=== PATIENT | female | born 1960 | race Caucasian/White ===

== ENCOUNTER 2018-11-25 14:52 | Emergency (ER) | payer OTHER ==
[2018-11-25] MEDS ORDERED: ONDANSETRON 4 MG (ODT) TAB ONE (15:26)
[2018-11-25] MEDS ORDERED: HYDROCODONE/APAP 7.5/325 MG TAB ONE (15:26)
--- NOTE | 2018-11-25 15:53 | RAD REPORT ---
EXAM DESCRIPTION: CT - Head Brain Wo Cont - 11/25/2018 3:40 pm CLINICAL HISTORY: Head injury status post fall. Headache e COMPARISON: None. TECHNIQUE: Computed axial tomography of the head was obtained. IV contrast was not requested. All CT scans are performed using dose optimization technique as appropriate and may include automated exposure control or mA/KV adjustment according to patient size. FINDINGS: An intracranial bleed is not seen . The ventricles are normal in caliber. No extra-axial fluid collection is noted. Fluid within the sinuses/ mastoids is not seen. IMPRESSION: No acute intracranial abnormality is seen. If patient's symptoms persist MRI of the bra in would be recommended.
--- NOTE | 2018-11-25 16:12 | RAD REPORT ---
EXAM DESCRIPTION: RAD - Humerus Right - 11/25/2018 4:06 pm CLINICAL HISTORY: Right arm pain status post fall FINDINGS: Comminuted fracture involves the humeral head/neck with moderate displacement of fracture fragments. No dislocation noted
--- NOTE | 2018-11-25 16:17 | RAD REPORT ---
EXAM DESCRIPTION: RAD - Wrist Right 3 View - 11/25/2018 4:06 pm CLINICAL HISTORY: Right wrist pain status post injury FINDINGS: Osteoporosis An old right distal radial fracture is present. An acute fracture line is not visualized. No dislocation If the patient continues to have symptoms to suggest an occult fracture then a follow-up x-ray in 5 d ays would be recommended
--- NOTE | 2018-11-25 16:24 | ER ---
Nurse's Notes [facility] Name: Samra Judge Age: 58 yrs Sex: Female : 1960 Arrival Date: 11/25/2018 Time: 14:53 Bed 16 Private MD: Diagnosis: Mildly Displaced Comminuted Humeral Head Fracture of the Right Humerus Presentation: 11/25 14:55 Presenting complaint: Patient states: "I fell at work, my upper arm hurts and I heard aj1 something funny. As I was going down I hit the right side of my face of the refrigerator. My wrist I broke years ago but it is hurting now" Denies LOC, vomiting. Patient reports that she was backing up and she didn't realize that there was a kid behind her and she tripped over the kid and landed on her knees and then the right side. Patient reports pain to right upper arm, and right wrist. Transition of care: patient was not received from another setting of care. Onset of symptoms was November 25, 2018 at 13:55. Risk Assessment: Do you want to hurt yourself or someone else? Patient reports no desire to harm self or others. Initial Sepsis Screen: Does the patient meet any 2 criteria? No. Patient's initial sepsis screen is negative. Does the patient have a suspected source of infection? No. Patient's initial sepsis screen is negative. Care prior to arrival: None. 14:55 Method Of Arrival: Wheelchair aj1 14:55 Acuity: LULU 3 aj1 Triage Assessment: 14:59 General: Appears uncomfortable, Behavior is calm, cooperative, appropriate for age. aj1 Pain: Complains of pain in right bicep, right wrist and right tricep Pain currently is 10 out of 10 on a pain scale. Neuro: Level of Consciousness is awake, alert, obeys commands. Cardiovascular: Patient's skin is warm and dry. Respiratory: Airway is patent Respiratory effort is even, unlabored, Respiratory pattern is regular, symmetrical. Historical: - Allergies: 14:59 Sulfa (Sulfonamide Antibiotics); aj1 - Home Meds: 14:59 Cinnamon oral oral [Active]; tumeric [Active]; Glucosamine oral oral [Active]; CoQ10 aj1 [Active]; cranberry oral oral [Active]; - PMHx: 14:59 None; aj1 - PSHx: 14:59 wrist surgery; aj1 - Immunization history:: Flu vaccine is not up to date. - Social history:: Smoking status: Patient/guardian denies using tobacco. - Ebola Screening: : Patient denies travel to an Ebola-affected area in the 21 days before illness onset. Screenin:05 Abuse screen: Denies threats or abuse. Nutritional screening: No deficits noted. rb1 Tuberculosis screening: No symptoms or risk factors identified. Fall Risk None identified. Assessment: 15:05 General: Appears uncomfortable, Behavior is calm, cooperative. Pain: Complains of pain rb1 in right arm Pain currently is 10 out of 10 on a pain scale. Neuro: Level of Consciousness is awake, alert, obeys commands, Oriented to person, place, time, situation. Cardiovascular: Capillary refill < 3 seconds is brisk in bilateral fingers. Respiratory: Airway is patent Respiratory effort is even, unlabored, Respiratory pattern is regular, symmetrical. GI: No signs and/or symptoms were reported involving the gastrointestinal system. : No signs and/or symptoms were reported regarding the genitourinary system. Derm: Skin is pink, warm \\T\\ dry. Musculoskeletal: Range of motion: limited in right arm. 16:00 Reassessment: Patient appears in no apparent distress at this time. No changes from rb1 previously documented assessment. 17:00 Reassessment: Patient appears in no apparent distress at this time. Patient and/or rb1 family updated on plan of care and expected duration. Pain level reassessed. Patient is alert, oriented x 3, equal unlabored respirations, skin warm/dry/pink. Vital Signs: 14:59 BP 170 / 79; Pulse 51; Resp 20; Temp 98.1(TE); Pulse Ox 100% on R/A; Weight 85.73 kg aj (R); Height 5 ft. 4 in. (162.56 cm) (R); Pain 10/10; 16:00 BP 190 / 63; Pulse 63; Resp 17; Pulse Ox 99% on R/A; rb1 17:00 BP 171 / 74; Pulse 60; Resp 16; Pulse Ox 100% on R/A; Pain 8/10; rb1 14:59 Body Mass Index 32.44 (85.73 kg, 162.56 cm) [facility] ED Course: 14:53 Patient arrived in ED. aj1 14:58 Triage completed. aj1 14:59 Arm band placed on Patient placed in an exam room. aj1 15:05 Patient has correct armband on for positive identification. Bed in low position. Call rb1 light in reach. Side rails up X 1. Pulse ox on. NIBP on. 15:06 Mike Chapa PA is PHCP. jr8 15:06 Kyle Oleary MD is Attending Physician. jr8 15:18 Shonda Watson, RN is Primary Nurse. rb1 15:40 Head Brain Wo Cont CT In Process Unspecified. EDMS 16:05 Humerus Right XRAY In Process Unspecified. EDMS 16:06 Wrist Right 3 View XRAY In Process Unspecified. EDMS 16:22 Kevyn Mcfarland MD is Referral Physician. jr8 17:03 No provider procedures requiring assistance completed. Patient did not have IV access rb1 during this emergency room visit. Administered Medications: 15:28 Drug: Zofran 4 mg Route: PO; rb1 16:00 Follow up: Response: No adverse reaction rb1 15:28 Drug: [place] (7.5 mg-325 mg) 1 tabs Route: PO; rb1 16:00 Follow up: Response: No adverse reaction; Pain is decreased rb1 Outcome: 16:24 Discharge ordered by MD. jr8 17:03 Patient left the ED. rb1 17:03 Discharged to home via wheelchair, with family. rb1 17:03 Condition: stable 17:03 Discharge instructions given to patient, Instructed on discharge instructions, follow up and referral plans. medication usage, Demonstrated understanding of instructions, follow-up care, medications, Prescriptions given X 3. Signatures: Dispatcher [employer] EDMarie Peace RN RN aj1 Mike Chapa PA PA jr8 Shonda Watson, RN RN rb1
--- NOTE | 2018-11-25 16:25 | EDPHYS ---
Physician Documentation [facility] Name: Samra Judge Age: 58 yrs Sex: Female : 1960 Arrival Date: 11/25/2018 Time: 14:53 Bed 16 Private MD: ED Physician Kyle Oleary HPI: 11/25 15:16 This 58 yrs old Female presents to ER via Wheelchair with complaints of Fall jr8 Injury, Shoulder Injury. 15:16 Details of fall: The patient fell from an upright position, while walking. Onset: The jr8 symptoms/episode began/occurred just prior to arrival. Severity of symptoms: At their worst the symptoms were mild. Pt was at work and stepping backwards when she stumbled and fell forwards, C/O pain in right upper arm, right wrist, and head. Denies LOC, dizziness, vomiting. Historical: - Allergies: 14:59 Sulfa (Sulfonamide Antibiotics); aj1 - Home Meds: 14:59 Cinnamon oral oral [Active]; tumeric [Active]; Glucosamine oral oral [Active]; CoQ10 aj1 [Active]; cranberry oral oral [Active]; - PMHx: 14:59 None; aj1 - PSHx: 14:59 wrist surgery; aj1 - Immunization history:: Flu vaccine is not up to date. - Social history:: Smoking status: Patient/guardian denies using tobacco. - Ebola Screening: : Patient denies travel to an Ebola-affected area in the 21 days before illness onset. ROS: 15:18 Constitutional: Negative for fever, chills, and weight loss, Eyes: Negative for injury, jr8 pain, redness, and discharge, ENT: Negative for injury, pain, and discharge, Neck: Negative for injury, pain, and swelling, Cardiovascular: Negative for chest pain, palpitations, and edema, Respiratory: Negative for shortness of breath, cough, wheezing, and pleuritic chest pain, Abdomen/GI: Negative for abdominal pain, nausea, vomiting, diarrhea, and constipation, Back: Negative for injury and pain, Skin: Negative for injury, rash, and discoloration. 15:18 MS/extremity: Positive for pain, of the face and right arm and right wrist. Exam: 15:18 Constitutional: This is a well developed, well nourished patient who is awake, alert, jr8 and in no acute distress. Head/Face: Normocephalic, atraumatic. Eyes: Pupils equal round and reactive to light, extra-ocular motions intact. Lids and lashes normal. Conjunctiva and sclera are non-icteric and not injected. Cornea within normal limits. Periorbital areas with no swelling, redness, or edema. ENT: Nares patent. No nasal discharge, no septal abnormalities noted. Tympanic membranes are normal and external auditory canals are clear. Oropharynx with no redness, swelling, or masses, exudates, or evidence of obstruction, uvula midline. Mucous membranes moist. Neck: Trachea midline, no thyromegaly or masses palpated, and no cervical lymphadenopathy. Supple, full range of motion without nuchal rigidity, or vertebral point tenderness. No Meningismus. Chest/axilla: Normal chest wall appearance and motion. Nontender with no deformity. No lesions are appreciated. Cardiovascular: Regular rate and rhythm with a normal S1 and S2. No gallops, murmurs, or rubs. Normal PMI, no JVD. No pulse deficits. Respiratory: Lungs have equal breath sounds bilaterally, clear to auscultation and percussion. No rales, rhonchi or wheezes noted. No increased work of breathing, no retractions or nasal flaring. Abdomen/GI: Soft, non-tender, with normal bowel sounds. No distension or tympany. No guarding or rebound. No evidence of tenderness throughout. Back: No spinal tenderness. No costovertebral tenderness. Full range of motion. 15:18 Musculoskeletal/extremity: ROM: intact in all extremities, Circulation is intact in all extremities. Sensation intact. Vital Signs: 14:59 BP 170 / 79; Pulse 51; Resp 20; Temp 98.1(TE); Pulse Ox 100% on R/A; Weight 85.73 kg aj1 (R); Height 5 ft. 4 in. (162.56 cm) (R); Pain 10/10; 16:00 BP 190 / 63; Pulse 63; Resp 17; Pulse Ox 99% on R/A; rb1 17:00 BP 171 / 74; Pulse 60; Resp 16; Pulse Ox 100% on R/A; Pain 8/10; rb1 14:59 Body Mass Index 32.44 (85.73 kg, 162.56 cm) aj1 MDM: 15:06 Patient medically screened. jr8 16:21 Data reviewed: vital signs, nurses notes, radiologic studies, plain films, and as a jr8 result, I will discharge patient. Data interpreted: Pulse oximetry: on room air is 100 %. Interpretation: normal. Counseling: I had a detailed discussion with the patient and/or guardian regarding: the historical points, exam findings, and any diagnostic results supporting the discharge/admit diagnosis, radiology results. 11/25 15:14 Order name: Humerus Right XRAY; Complete Time: 16:21 jr8 11/25 15:14 Order name: Wrist Right 3 View XRAY; Complete Time: 16:21 jr8 11/25 15:14 Order name: Head Brain Wo Cont CT; Complete Time: 16:21 jr8 11/25 16:21 Order name: Sling; Complete Time: 17:02 jr8 Administered Medications: 15:28 Drug: Zofran 4 mg Route: PO; rb1 16:00 Follow up: Response: No adverse reaction rb1 15:28 Drug: Fisher (7.5 mg-325 mg) 1 tabs Route: PO; rb1 16:00 Follow up: Response: No adverse reaction; Pain is decreased rb1 Disposition: 18:15 Co-signature as Attending Physician, Kyle Oleary MD. rn Disposition: 11/25/18 16:24 Discharged to Home. Impression: Mildly Displaced Comminuted Humeral Head Fracture of the Right Humerus. - Condition is Stable. - Discharge Instructions: Humerus Fracture Treated With Immobilization, Musculoskeletal Pain. - Prescriptions for Ibuprofen 800 mg Oral Tablet - take 1 tablet by ORAL route every 12 hours As needed take with food; 20 tablet. Tylenol- Codeine #3 300-30 mg Oral Tablet - take 2 tablets by ORAL route every 8 hours As needed; 20 tablet. Zofran ODT 4 mg Oral tablet,disintegrating - take 1 tablet by ORAL route every 6-8 hours; 20 tablet. - Work release form, Medication Reconciliation Form, Thank You Letter form. - Follow up: Kevyn Mcfarland MD; When: 2 - 3 days; Reason: Recheck today's complaints, Re-evaluation by your physician. - Problem is new. - Symptoms have improved. Signatures: Dispatcher [employer] EDMarie Peace RN RN aj1 Kyle Oleary MD MD rn Roszak, Josh, PA PA jr8 Shonda Watson RN RN rb1 Corrections: (The following items were deleted from the chart) 17:03 16:24 11/25/2018 16:24 Discharged to Home. Impression: Mildly Displaced Comminuted rb1 Humeral Head Fracture of the Right Humerus. Condition is Stable. Forms are Medication Reconciliation Form, Thank You Letter, Antibiotic Education, Prescription Opioid Use. Follow up: Kevyn Mcfarland; When: 2 - 3 days; Reason: Recheck today's complaints, Re-evaluation by your physician. Problem is new. Symptoms have improved. jr8
[2018-11-25 17:07] VITALS: BP 170/79; TEMP 98.1; O2SAT 100
== END 2018-11-25 17:03 | disposition home or self-care (01) ==
LOC: ER 14:52
DX: S42.351A Displaced comminuted fracture of shaft of humerus, right arm, initial encounter for closed fracture (principal); W19.XXXA Unspecified fall, initial encounter; Y93.01 Activity, walking, marching and hiking; Y92.89 Other specified places as the place of occurrence of the external cause; Y99.8 Other external cause status; Z88.2 Allergy status to sulfonamides
CPT/HCPCS: 70450; 99284

== ENCOUNTER 2019-08-13 08:25 | Day surgery (SDC) | payer OTHER ==
--- NOTE | 2019-08-11 18:10 | RAD REPORT ---
EXAM DESCRIPTION: RAD - Chest Pa And Lat (2 Views) - 08/11/2019 6:04 pm CLINICAL HISTORY: preop Chest pain. COMPARISON: CHEST SINGLE VIEW dated 12/09/2012 FINDINGS: Moderate bilateral pleural effusions are present. Mild interstitial pulmonary edema. The h eart is moderately enlarged in size. Old fractures seen proximal right humerus. IMPRESSION: Moderate CHF.
[2019-08-11 18:21] LABS: Absolute Lymphocytes (CBC) 2.4 K/uL (0.7-4.9); Basophils % 0.8 % (0-1.3); Hematocrit 40.5 % (36.0-45.0); Lymphocytes % 35.7 % (15.3-44.8); MPV 6.5 fL (7.6-11.3); RBC Red Blood Cell Count 4.96 M/uL (3.86-4.86)
[2019-08-11 18:34] LABS: Potassium 3.9 mmol/L (3.5-5.1); Protime INR 0.82
--- NOTE | 2019-08-12 06:26 | EKG ---
Test Date: 2019-08-11 Test Time: 17:34:25 Pressure Controller: DIPTI MEASUREMENT RESULTS: Intervals: Rate: 53 [place]: 186 QRSD: 112 QT: 474 QTc: 444 [place]: P: 29 [place]: 186 QRS: -19 T: 69 INTERPRETIVE STATEMENTS: Sinus bradycardia with sinus arrhythmia Minimal voltage criteria for LVH, may be normal variant Nonspecific T wave abnormality Abnormal ECG No previous ECG available for comparison Electronically Signed On 08-12-19 06:24:22 CDT by Robert Andino
[2019-08-13] MEDS ORDERED: NA CHLORIDE 0.9% 500 ML ONE (08:38)
[2019-08-13] MEDS ORDERED: ATROPINE SULF 1 MG/10 ML SYR IV ONE (09:55)
[2019-08-13] MEDS ORDERED: FENTANYL CITR 100 MCG/2 ML ONE (09:55)
[2019-08-13] MEDS ORDERED: MIDAZOLAM HCL 2 MG/2 ML INJ ONE (09:55)
[2019-08-13] MEDS ORDERED: NA CHLORIDE 0.9% 0 ML ONE (09:55)
--- OUTSIDE RECORDS SUMMARY | 2019-08-13 10:21 | XMS REPORT | Continuity of Care Document ---
:1960 Author Organization [facility] t Address [facility] Vic Macdonald [address] [place] [id number] Care Team Providers Name Role Phone MAHARAJ Attending Clinician Unavailable Problems Condition Condition Condition Status Onset Resolution Last Treating Co mments Source Name Details Category Date Date Treatment Clinician Date History of History of Problem Resolve Univers Fracture Fracture d ity of of right of right [place] humerus humerus Physici ans Closed Closed Problem Active Univers fracture fracture ity of of of [place] proximal proximal Physic i end of end of ans right right humerus, humerus, initial initial encounter encounter Right Right Problem Active Univers shoulder shoulder ity of pain pain [place] Physici ans Essential Essential Problem Active Uni vers (primary) (primary) ity of hypertensi hypertensi [place] on on Physici ans Hypothyroi Hypothyroi Problem Active U nivers dism dism ity of [place] Physici ans Nausea Nausea Problem Active Univers ity of [place] Physici ans Allergies, Adverse Reactions, Alerts Allergy Allergy Status Severity Reaction(s) Onset Inactive Treating Comm ents Source Name Type Date Date Clinician ondanset Allergy Active Univers kamari to drug ity of (finding [place] ) Physici ans Sulfa Allergy Active Univers Drugs to drug ity of (finding [place] ) Physici ans Social History Smoking Status Start Date Stop Date Source Never smoked tobacco (finding) U [facility] Physicians Medications Ordered Filled Start Stop Current Ordering Indication Dosage Frequency Signature Comments Components Source Medication Medication Date Date Medication? Clinician (SIG) Name Name Acetaminoph Acetaminoph 2018-02 Yes ABY TAKE 1-2 Univers en-Codeine en-Codeine 0-17 MAHARAJ M.D. TABLETS ity of 300-30 MG 300-30 MG 00:00: EVERY 6 TO [place] Oral Tablet Oral Tablet 00 8 HOURS Physici NEEDED FOR ans PAIN. Ibuprofen Ibuprofen Yes M.A. Unive rs 800 MG Oral 800 MG Oral i ty of Tablet Tablet [place] Physici ans Metoprolol Metoprolol Yes M.A. Uni vers Succinate Succinate ity o f ER 50 MG ER 50 MG [place] Oral Tablet Oral Tablet P hysici Extended Extended ans Release 24 Release 24 Hour Hour Spironolact Spironolact Yes M.A. U nivers one 50 MG one 50 MG ity o f Oral Tablet Oral Tablet [place] Physici ans Promethazin Promethazin Yes M.A. U nivers e HCl - 25 e HCl - 25 ity of MG Oral MG Oral [place] Tablet Tablet Physici ans Synthroid Synthroid Yes M.A. Unive rs 75 MCG Oral 75 MCG Oral i ty of Tablet Tablet [place] Physici ans Cinnamon Cinnamon Yes M.A. Univers TABS TABS ity of [place] Physici ans Turmeric Turmeric Yes M.A. Univers TABS TABS ity of [facility] ans Glucosamine Glucosamine Yes M.A. U nivers -Chondroiti -Chondroiti i ty of n CAPS n CAPS [facility] ans Multi Multi Yes M.A. Univers Vitamin Vitamin ity of TABS TABS [facility] ans CoQ-10 CAPS CoQ-10 CAPS Yes M.A. U nivers ity of [facility] ans Vitamin D Vitamin D Yes M.A. Unive rs TABS TABS ity of [facility] ans Cranberry Cranberry Yes M.A. Unive rs CAPS CAPS ity of [facility] ans Vital Signs Vital Name Observation Time Observation Value Comments Source BP Systolic 2018-12-11 09:50:00 167 mm[Hg] [facility]icians BP Diastolic 2018-12-11 09:50:00 84 mm[Hg] [facility] Height 2018-12-11 09:50:00 65 [in_us] [facility] Weight 2018-12-11 09:50:00 198 [lb_av] [facility] Body Mass Index 2018-12-11 09:50:00 32.95 kg/m2 [facility] Calculated Physicians Heart Rate 2018-12-11 09:50:00 63 /min [facility] Phys[facility] Procedures Procedure Date / Time Performed Performing Clinician Sourc e History of Wrist [facility] [place] [facility] ex Surgery Physicians Encounters Start End Encounter Admission Attending Care Care Encounter Source Date/Time Date/Time Type Type Clinicians Facility Department ID 2019-02-09 2019-02-09 Appointmen DYLAN MAHARAJ Orthopedics [id number] [facility] 09:45:00 09:45:00 t; ABY MAHARAJ, - [place] [facility] [place] [facility] Physici ans 2019-01-07 2019-01-07 Appointmen DYLAN MAHARAJ Orthopedics [id number] [facility] 13:45:00 13:45:00 t; ABY MAHARAJ, - [place] [facility] [place] 1 [facility] Physici ans 2018-12-25 2018-12-25 Appointmen DYLAN MAHARAJ Orthopedics [id number] [facility] 08:30:00 08:30:00 t; ABY MAHARAJ, - [place] [facility] [place] 1 [facility] Physici ans 2018-12-11 2018-12-11 Appointmen [facility] Orthopedics [id number] [facility] 09:30:00 09:30:00 t; ABY MAHARAJ, - [place] [facility] [place] 1 [facility] Physici ans Results This patient has no known results.
[2019-08-13 13:26] VITALS: BP 169/63; TEMP 98; O2SAT 94
--- NOTE | 2019-08-13 21:28 | OP ---
Date of Procedure: 08/13/2019 Surgeon: Robert Andino MD Pretzel Packer: Enedelia Enriquez. Patient will remain at bedrest for 2 hours and go home and see me in the office in the next 2 weeks. Procedure: Left heart catheterization, selective coronary arteriogram, left ventriculogram. Indication: Atypical chest pain and positive stress test. Description Of Procedure: Patient brought to the cath lab manager today as an outpatient, prepped and draped in the routine sterile fashion, given Versed for sedation. A 6-American sheath introduced in the [facility] t common femoral artery. [employer] was used to close the case. A 6-American Levy catheter was used to cannulate the left main and right main respectively. The RCA and circumflex had some mild-to-mod erate plaquing throughout. She was right dominant. There was about 20% to 30% mid LAD lesion after the second diagonal. No significant focal stenosis for further intervention. Complications: There were no complications. Blood Loss: 5 mL. Postoperative Diagnosis: Moderate coronary artery disease. Plan: Plan is for medical therapy. Anesthesia: Total conscious sedation was 30 minutes. JAMESON/INA Voice ID: [id number] Report ID: [id number]
== END 2019-08-13 13:05 | disposition home health service (06) ==
LOC: CCL 08:25
DX: I25.10 Atherosclerotic heart disease of native coronary artery without angina pectoris (principal); I11.0 Hypertensive heart disease with heart failure; I50.32 Chronic diastolic (congestive) heart failure; I34.0 Nonrheumatic mitral (valve) insufficiency; I27.21 Secondary pulmonary arterial hypertension; R60.9 Edema, unspecified; E03.9 Hypothyroidism, unspecified; Z11.59 Encounter for screening for other viral diseases; Z88.2 Allergy status to sulfonamides; Z88.6 Allergy status to analgesic agent
CPT/HCPCS: 93005; 85025; 80048; 36415; 85610; 82947; 85730; 71046; 93458; U0002; C1893; J2250; J3010; J7040; J0583

== ENCOUNTER 2021-04-03 07:35 | Day surgery (SDC) | payer BC ==
[2021-04-03] MEDS ORDERED: SOD FERRIC GLUC COMPLX/SUCROSE 250 MG in NA CHLORIDE 0.9% 250 ML IV SCH (08:00)
[2021-04-03 08:37] VITALS: BP 155/58; BMI 26.9
[2021-04-03 08:47] LABS: Hematocrit 26.2 % (36.0-45.0)
[2021-04-03 12:14] VITALS: TEMP 98.9; O2SAT 98
== END 2021-04-03 12:10 | disposition home or self-care (01) ==
LOC: DS 07:35
PROVIDERS: ATTEND Internal Medicine
DX: E53.8 Deficiency of other specified B group vitamins (principal); D50.9 Iron deficiency anemia, unspecified; D63.1 Anemia in chronic kidney disease; N18.5 Chronic kidney disease, stage 5
CPT/HCPCS: 36415; 85018; 85014; 96365; 96366; J2916; J7050

== ENCOUNTER 2021-06-27 07:30 | Day surgery (SDC) | payer BC ==
[2021-06-27] MEDS ORDERED: NA CHLORIDE 0.9% 250 ML ONE ×2 (08:38→12:11)
[2021-06-27 09:42] VITALS: BMI 27.3
[2021-06-27] MEDS ORDERED: FUROSEMIDE 40 MG/4 ML VIAL ONE ×2 (14:40→14:47)
[2021-06-27 16:06] VITALS: BP 135/54; TEMP 98.2; O2SAT 97
[2021-06-27 16:10] LABS: Hematocrit 24.6 % (36.0-45.0)
== END 2021-06-27 15:53 | disposition home or self-care (01) ==
LOC: DS 07:30
PROVIDERS: ATTEND Internal Medicine
DX: R71.0 Precipitous drop in hematocrit (principal)
CPT/HCPCS: 36415; 86900; 86850; 86901; 85018; 85014; 36430; J1940 ×2; P9016 ×2; J7050 ×2